=== PATIENT | male | born 1950 | race Caucasian/White ===

== ENCOUNTER 2017-09-14 11:07 | Day surgery (SDC) | payer MEDICARE, MEDICAID ==
[2017-09-13 15:11] VITALS: BMI 25.2
[2017-09-14] MEDS ORDERED: PROPOFOL 200 MG/20 ML VIAL ONE (13:24)
[2017-09-14] MEDS ORDERED: Lidocaine 1% PF 5 ML VIAL ONE (13:24)
--- NOTE | 2017-09-15 09:24 | OP ---
DATE OF PROCEDURE: 09/14/2017 PROCEDURE PERFORMED: Colonoscopy. PREOPERATIVE DIAGNOSIS: Colon cancer surveillance with a history of a tubulovillous adenoma, removed in 07/2014. PROCEDURE IN DETAIL: Informed consent was obtained. The patient was sedated with total intravenous anesthesia. The rectal exam was performed and was normal. The preparation quality was good. The co lonoscope was advanced to the cecum where the ileocecal valve and appendiceal orifice were clearly id entified. The colonic mucosa was normal throughout. Retroflexed views in the rectum were normal. IMPRESSION: Normal colonoscopy. RECOMMENDATIONS: Repeat increased risk colon polyp surveillance in 5 years.
== END 2017-09-14 15:20 | disposition home or self-care (01) ==
LOC: SDC 11:07
PROVIDERS: ATTEND Internal Medicine Gastroenterology
PROC: 0DJD8ZZ Inspection of Lower Intestinal Tract, Via Natural or Artificial Opening Endoscopic (ICD-10-PCS; principal; 2017-09-14)
DX: Z12.11 Encounter for screening for malignant neoplasm of colon (principal); Z86.010 Personal history of colon polyps; Z79.899 Other long term (current) drug therapy
CPT/HCPCS: J2001; J2704

== ENCOUNTER 2023-03-16 06:15 | Day surgery (SDC) | payer MEDICARE, MEDICAID ==
[2023-03-15 08:50] VITALS: BMI 24.7
[2023-03-16] MEDS ORDERED: PROPOFOL 40 ML ONE (07:42)
[2023-03-16] MEDS ORDERED: Lidocaine 2% PF 5 ML VIAL ONE (07:42)
[2023-03-16] MEDS ORDERED: PROPOFOL 20 ML ONE (07:43)
== END 2023-03-16 09:40 | disposition short-term general hospital (02) ==
LOC: SDC 06:15
PROVIDERS: ATTEND Internal Medicine Gastroenterology
PROC: 0DJD8ZZ Inspection of Lower Intestinal Tract, Via Natural or Artificial Opening Endoscopic (ICD-10-PCS; principal; 2023-03-16)
DX: Z86.010 Personal history of colon polyps (principal); K63.89 Other specified diseases of intestine; G47.33 Obstructive sleep apnea (adult) (pediatric); E03.9 Hypothyroidism, unspecified; F79 Unspecified intellectual disabilities
CPT/HCPCS: J2001; J2704